=== PATIENT | male | born 1980 | race Caucasian/White ===

== ENCOUNTER → 2016-12-12 | Outpatient (CLI) | payer OTHER ==
[~2016-12-12] MED LIST: COLACE100 MG PO; PERCOCET 5/31 TABLET PO; SUBOXONE 8 MG-1 EAC2 SL
== END | disposition home or self-care (01) ==
LOC: CDC 14:23
DX: Z01.810 Encounter for preprocedural cardiovascular examination (principal); K42.9 Umbilical hernia without obstruction or gangrene
CPT/HCPCS: 93000

== ENCOUNTER 2016-12-14 05:33 | Day surgery (SDC) | payer OTHER ==
[~2016-12-14] VITALS: Ht 182.9 cm; Wt 89.9 kg
[~2016-12-14 05:33] MED LIST changes: -COLACE100 MG PO; -PERCOCET 5/31 TABLET PO
[2016-12-14 06:43] VITALS: BP 161/93
[2016-12-14] MEDS ORDERED: PERCOCET 5/31 TABLET PO (09:30)
[2016-12-14] MEDS ORDERED: COLACE100 MG PO (09:59)
[2016-12-14 11:20] VITALS: BP 135/80
[2016-12-14 12:38] VITALS: BP 132/66
[2016-12-14 14:15] VITALS: BP 142/94
== END 2016-12-14 14:15 | disposition home or self-care (01) ==
LOC: SDC
PROC: 0WUF4JZ Supplement Abdominal Wall with Synthetic Substitute, Percutaneous Endoscopic Approach (ICD-10-PCS; principal; 2016-12-14)
DX: K43.9 Ventral hernia without obstruction or gangrene (principal); F19.21 Other psychoactive substance dependence, in remission; F11.20 Opioid dependence, uncomplicated; K21.9 Gastro-esophageal reflux disease without esophagitis; I34.1 Nonrheumatic mitral (valve) prolapse; F17.200 Nicotine dependence, unspecified, uncomplicated; Z83.79 Family history of other diseases of the digestive system; Z82.49 Family history of ischemic heart disease and other diseases of the circulatory system; Z80.0 Family history of malignant neoplasm of digestive organs; Z80.7 Family history of other malignant neoplasms of lymphoid, hematopoietic and related tissues
CPT/HCPCS: 88302; C1781; J0131; J0690; J1170; J1885; J2250; J2550; J3010